=== PATIENT | female | born 1980 | race Two or more races ===

== ENCOUNTER 2019-01-02 21:55 | Emergency (ER) | payer SELFPAY ==
[~2019-01-02] VITALS: Ht 162.6 cm; Wt 166.5 kg
[2019-01-02 22:48] LABS: Basophils # (auto) 0 uL; Basophils % (auto) 0.7 % (0.0-2.0); Eosinophils # (auto) 0.2 uL; Eosinophils % (auto) 2.9 % (0.0-7.0); Hematocrit 39.2 % (36.0-46.0); Hemoglobin 13.3 g/dL (12.2-16.2); Lymphocytes # (auto) 1.6 uL; Lymphocytes % (auto) 24.7 % (10.0-50.0); Mean Corpuscular Hemoglobin 31.1 pg (28.0-32.0); Mean Corpuscular Hgb Conc. 33.8 g/dL (32.0-36.0); Mean Corpuscular Volume 91.9 fL (80.0-100.0); Monocytes # (auto) 0.4 uL; Monocytes % (auto) 6.7 % (0.0-12.0); Neutrophils # (auto) 4.1 uL; Nucleated Red Blood Cells % 0.1 %; Platelet Count (auto) 176 10^3/uL (140-450); Red Blood Cells 4.26 10^6/uL (4.0-5.20); Red Cell Distribution Width 14.3 % (11.8-14.3); White Blood Cell 6.3 10^3/uL (4.4-10.8)
[2019-01-02 23:03] LABS: INR 0.96 (0.9-1.15); Partial Thromboplastin Time 27.4 sec (23.78-33.04); Prothrombin Time 10.3 sec (9.27-12.13)
[2019-01-02 23:06] LABS: Albumin 3.4 g/dL (3.4-5.0); Anion Gap 7 (5-15); Blood Urea Nitrogen 14 mg/dL (7-18); Calcium 8.7 mg/dL (8.5-10.1); Carbon Dioxide 26 mmol/L (21-32); Chloride 108 mmol/L (98-107); Glucose 87 mg/dL (74-106); Magnesium 2.4 mg/dL (1.6-2.6); Potassium 3.6 mmol/L (3.5-5.1); Sodium 141 mmol/L (136-145)
[2019-01-02 23:08] LABS: Alanine Aminotransferase 38 U/L (13-56); Aspartate Aminotransferase 21 U/L (15-37); BUN/Creatinine Ratio 14.9; GFR African American 85 mL/min; GFR Non-African American 70 mL/min
[2019-01-02 23:24] LABS: Alkaline Phosphatase 66 U/L (45-117); Bilirubin, Total 0.4 mg/dL (0.2-1.0); Total Protein 7.3 g/dL (6.4-8.2)
[2019-01-02] MEDS ORDERED: IOHEXOL 350 MG/ML 100ML IJ ONE (23:37)
[2019-01-03 06:45] VITALS: BP 142/92
== END 2019-01-03 06:10 | disposition home or self-care (01) ==
LOC: ER 22:09
DX: R07.89 Other chest pain (principal); R06.02 Shortness of breath; M79.604 Pain in right leg; I51.7 Cardiomegaly; I10 Essential (primary) hypertension
CPT/HCPCS: 36415; 71045; 71275; 80053; 83735; 83880; 84484; 84702; 85025; 85379; 85610; 85730; 93005; 93971; 99284; Q9967